=== PATIENT | female | born 1975 | race Caucasian/White ===

== ENCOUNTER 2024-10-13 06:23 | Day surgery (SDC) | payer MEDICAID ==
[~2024-10-13] VITALS: Ht 157.5 cm; Wt 86.2 kg
[2024-10-13] MEDS ORDERED: SODIUM CHLORIDE 0.9% 1,000 ML ONE (06:31)
[2024-10-13] MEDS ORDERED: FLUMAZENIL 0.1 MG/ML 5 ML VIAL IVP ONE (07:02)
[2024-10-13] MEDS ORDERED: EPINEPHrine 1:10,000 [1 MG/10 ML] SYRINGE ONE (07:02)
[2024-10-13] MEDS ORDERED: NALOXONE HCL 0.4 MG/ML VIAL ONE (07:02)
[2024-10-13] MEDS ORDERED: ATROPINE SULFATE 0.1 MG/ML 10 ML SYRINGE IVP ONE (07:02)
[2024-10-13] MEDS ORDERED: SODIUM TETRADECYL SULFATE 3% 60 MG/2 ML VIAL IVP ONE (07:02)
[2024-10-13] MEDS ORDERED: DiphenhydrAMINE HCL 50 MG/ML VIAL ONE (07:02)
[2024-10-13] MEDS: SODIUM CHLORIDE 0.9% 1,000 ML IV ONE (07:12)
[2024-10-13] MEDS ORDERED: LIDOCAINE/PF 2% 5 ML SYRINGE IVP ONE (12:00)
[2024-10-13] MEDS ORDERED: PROPOFOL 1% 20 ML VIAL IVP ONE (12:00)
[2024-10-13] MEDS ORDERED: OXYGEN THERAPY IH SCH (20:00)
== END 2024-10-13 10:15 | disposition home or self-care (01) ==
LOC: SURGERY 06:23
PROVIDERS: ATTEND Specialist
DX: R19.5 Other fecal abnormalities (principal); D12.4 Benign neoplasm of descending colon; D12.5 Benign neoplasm of sigmoid colon; D12.8 Benign neoplasm of rectum; K64.8 Other hemorrhoids; E66.01 Morbid (severe) obesity due to excess calories; Z79.899 Other long term (current) drug therapy; Z90.49 Acquired absence of other specified parts of digestive tract; Z90.710 Acquired absence of both cervix and uterus; Z98.891 History of uterine scar from previous surgery; Z68.34 Body mass index [BMI] 34.0-34.9, adult; Z88.0 Allergy status to penicillin; Z80.0 Family history of malignant neoplasm of digestive organs
CPT/HCPCS: 45385; 88305; J2704; J3490; J7030; J0171; J0461; J1200; J2310